=== PATIENT | male | born 1980 | race Two or more races ===

== ENCOUNTER 2017-10-27 09:39 | Emergency (ER) | payer OTHER ==
[~2017-10-27] VITALS: Ht 177.8 cm; Wt 102.1 kg
[2017-10-27] MEDS ORDERED: AVAPRO300 MG (10:03)
[2017-10-27] MEDS ORDERED: GLIMEPIRIDE4 MG (10:04)
== END 2017-10-27 17:22 | disposition home or self-care (01) ==
LOC: ER 09:39
DX: L03.115 Cellulitis of right lower limb (principal); I10 Essential (primary) hypertension

== ENCOUNTER 2019-09-27 09:06 | Inpatient (IN) | payer OTHER ==
[~2019-09-27] VITALS: Ht 177.8 cm; Wt 99.8 kg
[~2019-09-27 09:06] MED LIST: AVAPRO300 MG; GLIMEPIRIDE4 MG
[2019-09-27] MEDS ORDERED: HYZAAR 100-12.1 EACH PO (09:15)
[2019-10-12] MEDS ORDERED: METOPROLOL TART50 MG PO (14:28)
[2019-10-12] MEDS ORDERED: HYZAAR 100-12.1 EACH PO (14:28)
[2019-10-12] MEDS ORDERED: NEURONTIN600 MG PO (14:29)
[2019-10-12] MEDS ORDERED: INTESTINEX680 M1 PO (14:30)
== END 2019-10-12 15:21 | disposition home or self-care (01) | DRG 463 ==
LOC: ER 09:06 → SEC-K 17:04 → MEDJ 17:04 → MEDI 10-05 10:28
PROVIDERS: ADMIT Internal Medicine; ATTEND Internal Medicine
PROC: BQ3FZZZ Magnetic Resonance Imaging (MRI) of Left Lower Leg (ICD-10-PCS; 2019-09-28)
PROC: 0Y6S0Z0 Detachment at Left 2nd Toe, Complete, Open Approach (ICD-10-PCS; 2019-09-30)
PROC: 0Y6U0Z0 Detachment at Left 3rd Toe, Complete, Open Approach (ICD-10-PCS; 2019-09-30)
PROC: 0JBR0ZZ Excision of Left Foot Subcutaneous Tissue and Fascia, Open Approach (ICD-10-PCS; principal; 2019-10-10)
DX: M86.172 Other acute osteomyelitis, left ankle and foot (principal); A41.9 Sepsis, unspecified organism; L03.116 Cellulitis of left lower limb; I96 Gangrene, not elsewhere classified; N17.8 Other acute kidney failure; E11.52 Type 2 diabetes mellitus with diabetic peripheral angiopathy with gangrene; I10 Essential (primary) hypertension; M79.2 Neuralgia and neuritis, unspecified; B95.1 Streptococcus, group B, as the cause of diseases classified elsewhere; E11.65 Type 2 diabetes mellitus with hyperglycemia
CPT/HCPCS: 73725

== ENCOUNTER 2019-10-24 09:19 | Inpatient (IN) | payer OTHER ==
[~2019-10-24] VITALS: Ht 175.3 cm; Wt 71.7 kg
[~2019-10-24 09:19] MED LIST changes: +HYZAAR 100-12.1 EACH PO; +INTESTINEX680 M1 PO; +METOPROLOL TART50 MG PO; +NEURONTIN600 MG PO
[2019-11-02] MEDS ORDERED: METOPROLOL TART50 MG PO (12:20)
[2019-11-02] MEDS ORDERED: CYMBALTA60 MG PO (12:20)
[2019-11-02] MEDS ORDERED: GABAPENTIN800 MG PO (12:21)
[2019-11-02] MEDS ORDERED: INTESTINEX680 M1 PO (12:21)
[2019-11-02] MEDS ORDERED: COZAAR50 MG PO (12:22)
[2019-11-02] MEDS ORDERED: DOXAZOSIN MESYLA2 MG PO (12:29)
== END 2019-11-02 13:11 | disposition home or self-care (01) | DRG 256 ==
LOC: ER 09:19 → SURG 16:36 → SEC-K 16:36 → MEDI 18:39 → SEC-K 21:06 → SURG 22:58 → SURH 10-29 17:51 → SURG 10-29 18:37 → MEDJ 11-01 16:18
PROVIDERS: Specialist; ADMIT Internal Medicine; ATTEND Internal Medicine
PROC: 0X6 Anatomical Regions, Upper Extremities, Detachment (ICD-10-PCS; principal; 2019-10-28 16:45)
DX: E11.52 Type 2 diabetes mellitus with diabetic peripheral angiopathy with gangrene (principal); I96 Gangrene, not elsewhere classified; N17.9 Acute kidney failure, unspecified; M86.172 Other acute osteomyelitis, left ankle and foot; L97.523 Non-pressure chronic ulcer of other part of left foot with necrosis of muscle; I10 Essential (primary) hypertension; E11.65 Type 2 diabetes mellitus with hyperglycemia; E11.621 Type 2 diabetes mellitus with foot ulcer; Z20.828 Contact with and (suspected) exposure to other viral communicable diseases; Z79.4 Long term (current) use of insulin

== ENCOUNTER 2020-02-27 11:17 | Outpatient (CLI) | payer OTHER ==
[~2020-02-27 11:17] MED LIST changes: +COZAAR50 MG PO; +CYMBALTA60 MG PO; +DOXAZOSIN MESYLA2 MG PO; +GABAPENTIN800 MG PO
== END 2020-02-27 11:23 | disposition home or self-care (01) ==
LOC: LAB 11:17
PROVIDERS: ATTEND Specialist
DX: Z03.818 Encounter for observation for suspected exposure to other biological agents ruled out (principal); R05 Cough; R50.9 Fever, unspecified

== ENCOUNTER → 2020-03-08 | Outpatient (CLI) | payer OTHER | END | disposition home or self-care (01) | LOC: PPH VACUNA 07:12 | DX: Z23 Encounter for immunization (principal) ==

== ENCOUNTER 2020-12-24 08:00 | Outpatient (CLI) | payer OTHER | END 2020-12-24 08:30 | disposition home or self-care (01) | LOC: PPH VACUNA 08:00 | PROVIDERS: ATTEND Emergency Medicine Pediatric Emergency Medicine | DX: Z23 Encounter for immunization (principal) ==

== ENCOUNTER 2021-12-11 14:00 | Outpatient (CLI) | payer OTHER | END 2021-12-11 14:05 | disposition home or self-care (01) | LOC: PPH VACUNA 14:00 | PROVIDERS: ATTEND Emergency Medicine Pediatric Emergency Medicine | DX: Z23 Encounter for immunization (principal) ==

== ENCOUNTER 2022-07-29 09:14 | Inpatient (IN) | payer OTHER ==
[~2022-07-29] VITALS: Ht 167.6 cm; Wt 98.0 kg
== END 2022-08-30 19:50 | disposition home or self-care (01) | DRG 622 ==
LOC: ER 09:14 → SEC-K 10:24 → ER 10:24 → MEDJ 17:53 → ICU 08-18 19:00 → MEDJ 08-27 15:27
PROVIDERS: Urology; ADMIT Specialist; ATTEND Specialist
PROC: BW21ZZZ Computerized Tomography (CT Scan) of Abdomen and Pelvis (ICD-10-PCS; 2022-07-29)
PROC: 0VB50ZZ Excision of Scrotum, Open Approach (ICD-10-PCS; 2022-07-30)
PROC: 0JBB0ZZ Excision of Perineum Subcutaneous Tissue and Fascia, Open Approach (ICD-10-PCS; principal; 2022-07-30 07:00)
PROC: 0JDB0ZZ Extraction of Perineum Subcutaneous Tissue and Fascia, Open Approach (ICD-10-PCS; 2022-08-01)
PROC: B24BYZZ Ultrasonography of Heart with Aorta using Other Contrast (ICD-10-PCS; 2022-08-03)
PROC: 0JDB0ZZ Extraction of Perineum Subcutaneous Tissue and Fascia, Open Approach (ICD-10-PCS; 2022-08-04)
PROC: 0JDB0ZZ Extraction of Perineum Subcutaneous Tissue and Fascia, Open Approach (ICD-10-PCS; 2022-08-06)
PROC: 0JBB0ZZ Excision of Perineum Subcutaneous Tissue and Fascia, Open Approach (ICD-10-PCS; 2022-08-11)
PROC: 02HV33Z Insertion of Infusion Device into Superior Vena Cava, Percutaneous Approach (ICD-10-PCS; 2022-08-12)
PROC: B24BYZZ Ultrasonography of Heart with Aorta using Other Contrast (ICD-10-PCS; 2022-08-14)
PROC: 4A12X4Z Monitoring of Cardiac Electrical Activity, External Approach (ICD-10-PCS; 2022-08-14)
PROC: BW24ZZZ Computerized Tomography (CT Scan) of Chest and Abdomen (ICD-10-PCS; 2022-08-17)
PROC: 0JDB0ZZ Extraction of Perineum Subcutaneous Tissue and Fascia, Open Approach (ICD-10-PCS; 2022-08-20)
DX: E11.628 Type 2 diabetes mellitus with other skin complications (principal); I21.A1 Myocardial infarction type 2; J96.01 Acute respiratory failure with hypoxia; I50.33 Acute on chronic diastolic (congestive) heart failure; J18.8 Other pneumonia, unspecified organism; J15.7 Pneumonia due to Mycoplasma pneumoniae; I13.0 Hypertensive heart and chronic kidney disease with heart failure and stage 1 through stage 4 chronic kidney disease, or unspecified chronic kidney disease; I96 Gangrene, not elsewhere classified; E11.52 Type 2 diabetes mellitus with diabetic peripheral angiopathy with gangrene; L02.215 Cutaneous abscess of perineum; E87.1 Hypo-osmolality and hyponatremia; J81.1 Chronic pulmonary edema; N49.3 Fournier gangrene; N17.9 Acute kidney failure, unspecified; E11.29 Type 2 diabetes mellitus with other diabetic kidney complication; N18.9 Chronic kidney disease, unspecified; E11.65 Type 2 diabetes mellitus with hyperglycemia; B96.1 Klebsiella pneumoniae [K. pneumoniae] as the cause of diseases classified elsewhere; B96.5 Pseudomonas (aeruginosa) (mallei) (pseudomallei) as the cause of diseases classified elsewhere; Z79.84 Long term (current) use of oral hypoglycemic drugs; Z91.148 Patient's other noncompliance with medication regimen for other reason; Z89.429 Acquired absence of other toe(s), unspecified side